=== PATIENT | male | born 1980 | race Caucasian/White ===

== ENCOUNTER 2017-07-12 10:20 | Emergency (ER) | payer MEDICAID, OTHER ==
[~2017-07-12] VITALS: Ht 175.3 cm; Wt 65.1 kg
[2017-07-12 10:28] VITALS: BP 118/86
[2017-07-12] MEDS ORDERED: CLINDAMYCIN 150 MG/ML, 6ML ONE (10:53)
[2017-07-12] MEDS ORDERED: CLINDAMYCIN 150 MG/ML, 6ML IM ONE (11:00)
[2017-07-12] MEDS ORDERED: BACITRACIN ZINC OINT 500U/GM, 0.9 GM ONE (11:01)
== END 2017-07-12 11:30 | disposition home or self-care (01) ==
LOC: ED 11:00
DX: L03.116 Cellulitis of left lower limb (principal); L03.115 Cellulitis of right lower limb
CPT/HCPCS: 96372; 99283

== ENCOUNTER 2018-03-04 00:41 | Emergency (ER) | payer MEDICAID ==
[~2018-03-04] VITALS: Ht 175.3 cm; Wt 72.0 kg
[2018-03-04 00:42] VITALS: BP 109/70
[2018-03-04] MEDS ORDERED: CEFTRIAXONE 1,000 MG IM ONE (01:00)
[2018-03-04] MEDS ORDERED: HYDROcodone/APAP 5/325 TABLET PO ONE (01:00)
[2018-03-04] MEDS ORDERED: HYDROcodone/APAP 5/325 TABLET ONE (01:06)
[2018-03-04] MEDS ORDERED: CEFTRIAXONE 1,000 MG ONE (01:06)
== END 2018-03-04 01:49 | disposition home or self-care (01) ==
LOC: ED 01:10
DX: L03.115 Cellulitis of right lower limb (principal); L03.116 Cellulitis of left lower limb; F17.200 Nicotine dependence, unspecified, uncomplicated
CPT/HCPCS: 96372; 99283; J0696

== ENCOUNTER 2018-04-10 11:23 | Emergency (ER) | payer MEDICAID ==
[~2018-04-10] VITALS: Ht 175.3 cm; Wt 68.6 kg
[2018-04-10 11:30] VITALS: BP 119/84
[2018-04-10] MEDS ORDERED: HYDROcodone/APAP 5/325 TABLET PO ONE (12:00)
[2018-04-10] MEDS ORDERED: HYDROcodone/APAP 5/325 TABLET ONE (12:11)
== END 2018-04-10 12:23 | disposition home or self-care (01) ==
LOC: ED 12:07
DX: H66.002 Acute suppurative otitis media without spontaneous rupture of ear drum, left ear (principal); M79.604 Pain in right leg; Z86.14 Personal history of Methicillin resistant Staphylococcus aureus infection; F17.200 Nicotine dependence, unspecified, uncomplicated
CPT/HCPCS: 99283